=== PATIENT | female | born 1965 | race Caucasian/White ===

== ENCOUNTER 2017-02-24 11:22 | Emergency (ER) | payer BC ==
[2017-02-24 11:30] VITALS: RESP 18; TEMP 97.9; O2SAT 100
--- NOTE | 2017-02-24 12:10 | C.PDOC ---
History Of Present Illness 51 yr old female presents to the ER for evaluation of right ankle pain. Patient states she injured it 3 days ago and the pain was improving until this morning when the pain worsened. Patient denies other injuries, leg pain, foot pain, weakness or numbness. Time Seen by Provider: 02/24/17 11:55 Chief Complaint (Nursing): Lower Extremity Problem/Injury History Per: Patient History/Exam Limitations: no limitations Onset/Duration Of Symptoms: Days (3) Current Symptoms Are (Timing): Still Present Recent travel outside of the [place]: No Past Medical History Reviewed: Historical Data, Nursing Documentation, Vital Signs Vital Signs: Last Vital Signs Temp 97.9 F 02/24/17 11:27 Pulse 65 02/24/17 12:59 Resp 18 02/24/17 12:59 BP 112/65 02/24/17 12:59 Pulse Ox 100 02/24/17 13:00 Family History: States: No Known Family Hx - Social History Hx Alcohol Use: No Hx Substance Use: No - Immunization History Hx Influenza Vaccination: Yes Review Of Systems Except As Marked, All Systems Reviewed And Found Negative. Musculoskeletal: Positive for: Other ((+) Right ankle pain). Negative for: Leg Pain, Foot Pain Neurological: Negative for: Weakness, Numbness Physical Exam - Physical Exam Appears: Non-toxic, No Acute Distress Skin: Warm, Dry, No Rash Head: Atraumatic, Normacephalic Oral Mucosa: Moist Cardiovascular: Rhythm Regular, No Murmur Respiratory: Normal Breath Sounds, No Rales, No Rhonchi, No Stridor, No Wheezing Extremity: Normal ROM, No Calf Tenderness, Other ((+) Right Ankle - Tenderness and mild swelling to right lateral malleolus) Pulses: Left Dorsalis Pedis: Normal, Right Dorsalis Pedis: Normal Neurological/Psych: Oriented x3, Normal Speech, Normal Motor ED Course And Treatment O2 Sat by Pulse Oximetry: 100 (RA) Pulse Ox Interpretation: Normal - Other Rad X-Ray - Right Ankle X-Ray: Viewed By Me, Read By Radiologist Interpretation: PROCEDURE: Right Ankle Radiographs. HISTORY: right ankle injury. COMPARISON: None. FINDINGS: BONES: Normal. No fracture. JOINTS: Normal. No osteoarthritis. Ankle mortise maintained. Talar dome intact. SOFT TISSUES: Normal. OTHER FINDINGS: None. IMPRESSION: Normal right ankle radiographs. Medical Decision Making Medical Decision Making: IMPRESSION: Right ankle sprain PLAN: * X-Ray - Right Ankle * Motrin PO * Tylenol PO NOTE: * Air cast is applied by special systems technician, checked by me. * Patient advised to RICE. Disposition Counseled Patient/Family Regarding: Diagnosis, Need For Followup, Rx Given - Disposition Disposition: HOME/ ROUTINE Disposition Time: 12:51 Condition: STABLE Additional Instructions: rest, ice, elevate follow up with your doctor in 2 days advil or aleve for pain call to make an appointment return to hospital if symptoms worsens Instructions: Ankle Sprain (ED) Forms: [employer] [facility] (Yoruba), General Discharge Instructions - Clinical Impression Clinical Impression: Ankle sprain - Scribe Statement The provider has reviewed the documentation as recorded by the Carmen Waller Provider Attestation: All medical record entries made by the Carmen were at my direction and personally dictated by me. I have reviewed the chart and agree that the record accurately reflects my personal performance of the history, physical exam, medical decision making, and the department course for this patient. I have also personally directed, reviewed, and agree with the discharge instructions and disposition.
--- NOTE | 2017-02-24 12:46 | RAD ---
PROCEDURE: Right Ankle Radiographs. HISTORY: right ankle injury COMPARISON: None FINDINGS: BONES: Normal. No fracture. JOINTS: Normal. No osteoarthritis. Ankle mortise maintained. Talar dome intact SOFT TISSUES: Normal. OTHER FINDINGS: None. IMPRESSION: Normal right ankle radiographs.
[2017-02-24 13:00] VITALS: BP 112/65; PULSE 65
== END 2017-02-24 13:19 | disposition home or self-care (01) ==
LOC: C.ER 11:22
DX: S93.401A Sprain of unspecified ligament of right ankle, initial encounter (principal); X58.XXXA Exposure to other specified factors, initial encounter; Y92.9 Unspecified place or not applicable